=== PATIENT | female | born 1950 | race Two or more races ===

== ENCOUNTER 2018-12-19 14:46 | Outpatient (CLI) | payer OTHER ==
[~2018-12-19 14:46] MED LIST: SYNTHROID50 MCG
== END 2018-12-19 14:58 | disposition home or self-care (01) ==
LOC: RAD 14:46
DX: M15.0 Primary generalized (osteo)arthritis (principal); M05.79 Rheumatoid arthritis with rheumatoid factor of multiple sites without organ or systems involvement

== ENCOUNTER 2022-10-26 04:06 | Inpatient (IN) | payer OTHER ==
[~2022-10-26] VITALS: Ht 160 cm; Wt 58.5 kg
[2022-10-26] MEDS ORDERED: LOSARTAN POTASS25 MG PO (04:25)
[2022-10-26] MEDS ORDERED: NEXIUM 24HR20 MG PO (04:26)
--- NOTE | 2022-10-26 04:28 | NUR ---
PTE REFIERE DOLOR ABDOMINAL Y DISTENCION DESDE ARMIDA NO VOMITOS NO DIARREAS. SE ACOMODA EN PASILLO.
--- NOTE | 2022-10-26 04:57 | NUR ---
PTE FEMENINA EVALUADA POR , SE ORIENTA OSBRE ORDENES DE [place] REFIERE COMPRENDER. SE COLECTAN [facility]STRAS DE [facility] Y SE CANALIZA VENA BAJO MEDIDAS ASEPTICAS. SE ADMINISTRAN MEDICAMENTOS, BAJO MEDIDAS ASEPTICAS. SE NOTIFICA A SONOGRAFIA PARA ESTUDIO. PTE MANEJADO POR KELLI DELONG.
--- NOTE | 2022-10-26 07:30 | NUR ---
SE RECIBE PTE EN EL AREA DE OBSERVACION EN SEAMUS CON BARANDAS ELEVADA Y TIMBRE ACCESIBLE, PTE ALERTA Y ORIENTADA POR 3 SE OBSERVA VENOPUNCION PATENTE Y SAMANTA DEDEMA PTE NO PRESENTA DOLOR AL MOMENTO, PTE SE MANTIENE EN OBSERVACION Y BAJO TRATAMIENTO PTE EN ESPERA DEL DR CASE
[2022-10-29] MEDS ORDERED: GAVISCON ES TA1 EACH (08:25)
== END 2022-10-31 13:41 | disposition home or self-care (01) | DRG 418 ==
LOC: ER 04:06 → MEDJ 14:21
PROVIDERS: Surgery; ADMIT Internal Medicine; ATTEND Internal Medicine
PROC: BF37YZZ Magnetic Resonance Imaging (MRI) of Pancreas using Other Contrast (ICD-10-PCS; 2022-10-26)
PROC: BF3 Imaging, Hepatobiliary System and Pancreas, Magnetic Resonance Imaging (MRI) (ICD-10-PCS; 2022-10-26)
PROC: 0FT44ZZ Resection of Gallbladder, Percutaneous Endoscopic Approach (ICD-10-PCS; principal; 2022-10-29 11:00)
DX: K85.10 Biliary acute pancreatitis without necrosis or infection (principal); K80.10 Calculus of gallbladder with chronic cholecystitis without obstruction; I10 Essential (primary) hypertension; E86.0 Dehydration; E03.9 Hypothyroidism, unspecified

== ENCOUNTER 2022-12-07 09:06 | Outpatient (CLI) | payer OTHER | END 2022-12-07 09:13 | disposition home or self-care (01) | LOC: MAMO-SONO 09:06 | DX: N64.4 Mastodynia (principal) ==

== ENCOUNTER → 2022-12-07 | Outpatient (CLI) | payer OTHER ==
[~2022-12-07] MED LIST changes: +GAVISCON ES TA1 EACH; +LOSARTAN POTASS25 MG PO; +NEXIUM 24HR20 MG PO
== END | disposition home or self-care (01) ==
LOC: NUCLEAR 13:15
DX: M81.0 Age-related osteoporosis without current pathological fracture (principal)

== ENCOUNTER 2023-05-23 14:10 | Emergency (ER) | payer OTHER ==
[~2023-05-23] VITALS: Ht 157.5 cm; Wt 57.2 kg
[2023-05-23] MEDS ORDERED: COZAAR100 MG PO (14:33)
[2023-05-23] MEDS ORDERED: SYNTHROID88 MCG PO (14:33)
[2023-05-23] MEDS ORDERED: SULFAMETHOXAZOL20 ML PO (14:35)
== END 2023-05-23 17:51 | disposition home or self-care (01) ==
LOC: ER 14:10
DX: L02.415 Cutaneous abscess of right lower limb (principal)

== ENCOUNTER 2024-02-16 11:37 | Outpatient (CLI) | payer OTHER ==
[~2024-02-16 11:37] MED LIST changes: +COZAAR100 MG PO; +SULFAMETHOXAZOL20 ML PO; +SYNTHROID88 MCG PO
== END 2024-02-16 11:46 | disposition home or self-care (01) ==
LOC: MAMO-SONO 11:37
DX: N64.4 Mastodynia (principal); Z12.31 Encounter for screening mammogram for malignant neoplasm of breast

== ENCOUNTER 2024-12-06 11:24 | Outpatient (CLI) | payer OTHER ==
[~2024-12-06 11:24] MED LIST changes: +CRESTOR10 MG; +SYNTHROID75 MCG
== END 2024-12-06 11:31 | disposition home or self-care (01) ==
LOC: RAD 11:24
PROVIDERS: ATTEND Internal Medicine Rheumatology
DX: M15.0 Primary generalized (osteo)arthritis (principal); M05.79 Rheumatoid arthritis with rheumatoid factor of multiple sites without organ or systems involvement

== ENCOUNTER 2024-12-28 13:33 | Outpatient (CLI) | payer OTHER | END 2024-12-28 13:42 | disposition home or self-care (01) | LOC: MRI 13:33 | PROVIDERS: ATTEND Internal Medicine Rheumatology | DX: M23.300 Other meniscus derangements, unspecified lateral meniscus, right knee (principal); M23.303 Other meniscus derangements, unspecified medial meniscus, right knee | CPT/HCPCS: 73718 ==

== ENCOUNTER 2025-01-11 12:56 | Outpatient (CLI) | payer OTHER | END 2025-01-11 12:57 | disposition home or self-care (01) | LOC: NUCLEAR 12:56 | PROVIDERS: ATTEND Internal Medicine Rheumatology | DX: M81.0 Age-related osteoporosis without current pathological fracture (principal); M81.8 Other osteoporosis without current pathological fracture ==

== ENCOUNTER → 2025-04-04 | Outpatient (CLI) | payer OTHER | END | disposition home or self-care (01) | LOC: MAMO-SONO 14:02 | PROVIDERS: ATTEND Internal Medicine | DX: N64.4 Mastodynia (principal); R92.8 Other abnormal and inconclusive findings on diagnostic imaging of breast; Z12.31 Encounter for screening mammogram for malignant neoplasm of breast ==

== ENCOUNTER 2025-05-21 12:20 | Outpatient (CLI) | payer OTHER | END 2025-05-21 12:22 | disposition home or self-care (01) | LOC: TOM 12:20 | PROVIDERS: ATTEND Internal Medicine | DX: R10.9 Unspecified abdominal pain (principal); R19.7 Diarrhea, unspecified | CPT/HCPCS: 74177; Q9965 ==

== ENCOUNTER 2025-05-22 09:01 | Outpatient (CLI) | payer OTHER ==
[2025-05-22 10:20] LABS: T4 FREE 1.42 NG/ML (0.76-1.46); TSH 3.37 uIU/mL (0.358-3.74)
== END 2025-05-22 09:10 | disposition home or self-care (01) ==
LOC: LAB 09:01
PROVIDERS: ATTEND Internal Medicine
DX: R19.7 Diarrhea, unspecified (principal); E03.9 Hypothyroidism, unspecified

== ENCOUNTER 2025-08-12 14:28 | Outpatient (CLI) | payer OTHER | END 2025-08-12 14:32 | disposition home or self-care (01) | LOC: RAD 14:28 | PROVIDERS: ATTEND Orthopaedic Surgery | DX: M25.561 Pain in right knee (principal); M25.562 Pain in left knee ==